=== PATIENT | male | born 1995 | race Caucasian/White ===

== ENCOUNTER 2017-03-24 23:24 | Emergency (ER) | payer OTHER ==
[2017-03-24 23:29] VITALS: BP 119/64; PULSE 69; TEMP 97.8; BMI 38.0
[2017-03-25] MEDS ORDERED: CEPHALEXIN MONOHYDRATE 500 MG CAPSULE (UD) PO ONE (02:20)
--- NOTE | 2017-03-25 02:21 | PDOC ---
History of Present Illness - General History Source: Patient Exam Limitations: No Limitations - History of Present Illness Initial Comments: 03/25/17 05:05 The patient is a 22 year old male with no significant past medical history who presents to the ED for pain and abrasion of the left wrist s/p mechanical fall one day ago. Patient reports he was home walking around last night, when he tripped, fell forward and sustained a abrasion/laceration to his left wrist. States he cleaned up the area and covered the wound with a bandage. However, after taking a shower today, he removed the bandage and noted some discharge coming from the area. Denies head trauma or LOC. Denies any radiation of pain. no associated numbness/tingling/weakness. The patient denies fever, chills, cough, SOB, chest pain, and palpitations. The patient denies abdominal pain, nausea, vomiting, and diarrhea. Allergies: NKDA Social History: No alcohol, tobacco, or drug use reported. Past Surgical History: None reported PCP not affiliated <Franny Patel - Last Filed: 03/25/17 05:05> <Jcarlos Ardon - Last Filed: 03/27/17 07:39> - General Chief Complaint: Injury Stated Complaint: LACERATION Time Seen by Provider: 03/25/17 01:39 Past History <Franny Patel - Last Filed: 03/25/17 05:05> - Past Medical History Other medical history: denies - Immunization History Immunization Up to Date: Yes - Psycho/Social/Smoking Cessation Hx Anxiety: No Suicidal Ideation: No Smoking History: Never smoked Have you smoked in the past 12 months: No Number of Cigarettes Smoked Daily: 0 Hx Alcohol Use: No Drug/Substance Use Hx: No Substance Use Type: None <Jcarlos Ardon - Last Filed: 03/27/17 07:39> - Past Medical History Allergies/Adverse Reactions: Allergies Allergy/AdvReac Type Severity Reaction Status Date / Time No Known Allergies Allergy Verified 03/24/17 23:29 Home Medications: Ambulatory Orders Cephalexin [Keflex] 500 mg PO QID #20 capsule 03/25/17 Review of Systems - Review of Systems Able to Perform ROS?: Yes Comments:: 03/25/17 05:05 Constitutional - Pt denies Fever, Chills, weakness, HEENT: denies vision changes, sore throat Musculskelatal - +pain and abrasion of the left wrist denies back pain, joint swelling skin - denies rash neurological: denies headache, numbness, focal weakness, tingling, ataxia, weakness <Franny Patel - Last Filed: 03/25/17 05:05> *Physical Exam - Vital Signs Last Vital Signs Temp Pulse Resp BP Pulse Ox 97.8 F 69 18 119/64 99 03/24/17 23:26 03/24/17 23:26 03/24/17 23:26 03/24/17 23:26 03/24/17 23:26 - Physical Exam Comments: 03/25/17 05:05 GENERAL: The patient is awake, alert, and fully oriented, Nontoxic - in no acute distress. HEAD: Normocephalic, atraumatic. EYES: extraocular movements intact, sclera anicteric, conjunctiva clear. ENT: Normal voice, Moist mucous membranes. NECK: Normal range of motion, supple without lymphadenopathy, JVD, or masses. EXTREMITIES: 5cm skin superficial abrasion/skin abrasion at the volar aspect of the left wrist. Normal range of motion, no edema. Mild surrounding erythema, or no induration/warmth or localized tenderness. NEUROLOGICAL: No facial asymmetry, Normal speech, normal gait. Sensation intact. SKIN: Warm, Dry, normal turgor, no rashes noted. <AmandaKandisFranny - Last Filed: 03/25/17 05:05> - Vital Signs Last Vital Signs Temp Pulse Resp BP Pulse Ox 97.8 F 69 18 119/64 99 03/24/17 23:26 03/24/17 23:26 03/24/17 23:26 03/24/17 23:26 03/24/17 23:26 <Jcarlos Ardon - Last Filed: 03/27/17 07:39> ED Treatment Course - Medications Given in the ED: ED Medications Discontinued Medications Generic Name Dose Route Start Last Admin Trade Name Freq PRN Reason Stop Dose Admin Bacitracin 0.9 gm 03/25/17 02:59 03/25/17 02:59 Bacitracin - TP 03/25/17 03:00 0.9 gm ONCE ONE Administration Cephalexin HCl 500 mg 03/25/17 02:20 03/25/17 02:59 Keflex - PO 03/25/17 02:21 500 mg ONCE ONE Administration <Franny Patel - Last Filed: 03/25/17 05:05> Medical Decision Making - Medical Decision Making 03/25/17 02:12 22y M presenting with abrasion/superfical laceration to volar R wrist, non gaping, no discharge/bleeding currently, mildly erythemadous but not warm nor tender to touch. will give abx as pt noted some discharge earlier n/v intact injury >24 hrs, suture reapair not indicated supportive mangement and bacitracin infectious returprecuations were discussed I discussed the physical exam findings, ancillary test results and final diagnoses with the patient. I answered all of the patient's questions. The patient was satisfied with the care received and felt comfortable with the discharge plan and treatment plan. The patient will call their primary care physician within 24 hours to arrange follow-up and will return to the Emergency Department with any new, persistent or worsening symptoms. <Jcarlos Ardon - Last Filed: 03/27/17 07:39> *DC/Admit/Observation/Transfer - Attestations Scribe Attestion: 03/25/17 05:05 Documentation prepared by Franny Patel, acting as medical illustrator for Jcarlos Ardon MD, /DO. <Franny Patel - Last Filed: 03/25/17 05:05> - Discharge Dispostion Admit: No <Jcarlos Ardon - Last Filed: 03/27/17 07:39> Diagnosis at time of Disposition: Abrasion - Discharge Dispostion Disposition: HOME Condition at time of disposition: Stable - Prescriptions Prescriptions: Cephalexin [Keflex] 500 mg PO QID #20 capsule - Referrals Referrals: [facility] [Provider Group] - Patient Instructions Printed Discharge Instructions: DI for Abrasion Additional Instructions: Return to the emergency department immediately with ANY new, persistent or worsening symptoms. Clean your wound gently with soap and water and apply bacitracin twice daily. If there is any surrounding redness, swelling, pain, purulent discharge or other concerns return to the ER for reevaluation. You MUST call and follow up with your doctor tomorrow for further evaluation of your symptoms. Results were discussed with you. Please make sure your doctor reviews the results of your emergency evaluation.
[2017-03-25] MEDS ORDERED: CEPHALEXIN MONOHYDRATE 250 MG CAPSULE (FP) ONE (02:52)
[2017-03-25] MEDS ORDERED: BACITRACIN 0.9 GM PACKET ONE (02:55)
[2017-03-25] MEDS ORDERED: BACITRACIN 0.9 GM PACKET TP ONE (02:59)
== END 2017-03-25 03:00 | disposition home or self-care (01) ==
LOC: JER 23:24
DX: S60.812A Abrasion of left wrist, initial encounter (principal); W01.190A Fall on same level from slipping, tripping and stumbling with subsequent striking against furniture, initial encounter; Y93.89 Activity, other specified; Y92.89 Other specified places as the place of occurrence of the external cause
CPT/HCPCS: 99281-25

== ENCOUNTER 2017-11-22 11:03 | Emergency (ER) | payer OTHER ==
[2017-11-22 11:09] VITALS: BP 128/75; PULSE 62; TEMP 98.3; BMI 32.3
[2017-11-22] MEDS ORDERED: diazePAM 5 MG TABLET PO ONE (11:51)
[2017-11-22] MEDS ORDERED: KETOROLAC TROMETHAMINE 60 MG/2 ML VIAL IM ONE (11:51)
[2017-11-22] MEDS ORDERED: KETOROLAC TROMETHAMINE 60 MG/2 ML VIAL ONE (11:52)
[2017-11-22] MEDS ORDERED: diazePAM 5 MG TABLET ONE (11:53)
--- NOTE | 2017-11-22 13:11 | PDOC ---
History of Present Illness - General Chief Complaint: Back Pain Stated Complaint: BACK PAIN Time Seen by Provider: 11/22/17 11:44 History Source: Patient Exam Limitations: No Limitations - History of Present Illness Initial Comments: 11/22/17 13:08 CHIEF COMPLAINT: Mid back pain. HISTORY OF PRESENT ILLNESS: Patient is a 22-year-old male, presents with upper back pain and spasm. Reports on Friday he started a vigorous exercise program doing a lot of pushups then yesterday had to remove leaves from a gutter and felt a spasm to mid back nonradiating. Feels better when he takes a deep breath. Denies fall. Denies chest pain or shortness of breath. REVIEW OF SYSTEMS: GENERAL: Afebrile, denies any weakness RESPIRATORY: No cough, wheezing, or hemoptysis. CARDIAC: No chest pain or shortness of breath MUSCULOSKELETAL: Pain to generalized back no point tenderness. Pain worse on left and right SKIN : No erythema, no bruising, no deformity. GI/: Denies any abdominal pain, no urinary difficulty, incontinence or urinary retention. RECTAL: Denies any difficulty this A.m. NEUROLOGICAL: Denies any numbness or tingling. No neurosensory deficits. PHYSICAL EXAM: GENERAL: The patient is awake, alert, and fully oriented, in no acute distress. RESPIRATORY: Lungs clear bilaterally, no rhonchi wheezes or crackles CARDIAC: S1-S2 audible, no murmur rub or gallop MUSCULOSKELETAL: Pain to generalized lower back, nonradiating, no tingling or sensory deficit. Less than 2 second cap refill, +4 popliteal and pedal pulses. GI/: Abdomen soft, nontender, nondistended. No rebound tenderness. No masses palpable. MUSCULOSKELETAL: No spinal point tenderness. No spasm to left lateral back . Normal reflexive and no deficits to sensation or strength. SKIN: Warm, Dry, normal turgor, no erythema, no edema no bruising. Past History - Past Medical History Allergies/Adverse Reactions: Allergies Allergy/AdvReac Type Severity Reaction Status Date / Time No Known Allergies Allergy Verified 11/22/17 11:09 Home Medications: Ambulatory Orders Cyclobenzaprine HCl [Flexeril 10 mg] 10 mg PO BID PRN #20 tablet 11/22/17 Naproxen [Naprosyn] 500 mg PO BID #20 tablet 11/22/17 COPD: No Other medical history: DENIES MEDICAL HX - Immunization History Immunization Up to Date: Yes - Suicide/Smoking/Psychosocial Hx Smoking History: Never smoked Have you smoked in the past 12 months: No Number of Cigarettes Smoked Daily: 0 Hx Alcohol Use: No Drug/Substance Use Hx: No Substance Use Type: None *Physical Exam - Vital Signs Last Vital Signs Temp Pulse Resp BP Pulse Ox 98.3 F 62 18 128/75 97 11/22/17 11:06 11/22/17 11:06 11/22/17 11:06 11/22/17 11:06 11/22/17 11:06 ED Treatment Course - Medications Given in the ED: ED Medications Discontinued Medications Generic Name Dose Route Start Last Admin Trade Name Freq PRN Reason Stop Dose Admin Diazepam 5 mg 11/22/17 11:51 11/22/17 11:56 Valium - PO 11/22/17 11:52 5 mg ONCE ONE Administration Ketorolac Tromethamine 60 mg 11/22/17 11:51 11/22/17 11:56 Toradol Injection - IM 11/22/17 11:52 60 mg ONCE ONE Administration Medical Decision Making - Medical Decision Making 11/22/17 13:10 A/P: Patient with left lateral upper back pain, spasm after working out strenuously. Lungs are clear. Patient reports pain is better after taking a deep breath. Has not attempted to take any medication denies any chest pain or shortness of breath. Denies any direct injury. Toradol 60 mg and Valium 5 mg by mouth given times one, will reevaluate 11/22/17 16:07 This reports relief of pain will DC on Naprosyn and Flexeril, no heavy lifting greater than 10 pounds stop working out aggressively until pain is resolved. If any increased pain, chest pain or shortness of breath return to ER *DC/Admit/Observation/Transfer Diagnosis at time of Disposition: Thoracic back pain Qualifiers: Chronicity: acute Back pain laterality: left Qualified Code(s): M54.6 - Pain in thoracic spine - Discharge Dispostion Disposition: HOME Condition at time of disposition: Stable Admit: No - Prescriptions Prescriptions: Cyclobenzaprine HCl [Flexeril 10 mg] 10 mg PO BID PRN #20 tablet PRN Reason: Pain Naproxen [Naprosyn] 500 mg PO BID #20 tablet - Referrals Referrals: Taylor Holley MD [Primary Care Provider] - - Patient Instructions Additional Instructions: 1. Please return to the emergency department with any numbness, tingling, weakness, numbness or tingling to groin or legs, or loss of bowel or bladder function. 2. Use pain medication as ordered. 3. Please is to followup in the office of for evaluation within a week if no improvement. 4. Heat to left upper back 5. Refrain from lifting anything above 10 pounds, until pain resolved. - Post Discharge Activity Forms/Work/School Notes: Back to Work
== END 2017-11-22 13:19 | disposition home or self-care (01) ==
LOC: JERFT 11:03
PROC: 3E0233Z Introduction of Anti-inflammatory into Muscle, Percutaneous Approach (ICD-10-PCS; principal; 2017-11-22)
DX: M54.6 Pain in thoracic spine (principal)
CPT/HCPCS: 99281-25

== ENCOUNTER 2017-12-24 01:12 | Emergency (ER) | payer OTHER ==
[2017-12-24 02:54] VITALS: BP 115/84; PULSE 94; TEMP 97.5; BMI 34.3
[2017-12-24] MEDS ORDERED: FAMOTIDINE 20 MG/50 ML IVPB 20 MG in PREMIX 50 IVPB ONE (03:17)
[2017-12-24] MEDS ORDERED: SODIUM CHLORIDE 1,000 ML IV STA (03:17)
[2017-12-24] MEDS ORDERED: ONDANSETRON 4 MG/2 ML VIAL IVPUSH STA (03:17)
--- NOTE | 2017-12-24 03:17 | PDOC ---
History of Present Illness - General History Source: Patient, Old Records Exam Limitations: No Limitations - History of Present Illness Initial Comments: 12/24/17 04:29 Patient is a 22 year old male with no significant past medical history who presents to the ED with complaints of food poisoning that began earlier today. Patient reports that he must have food poisoning because he began to develop nausea shortly after eating yesterday but has been unable to vomit for the past 24 hours. He reports experiencing diffuse abdominal pain as well as constipation since yesterday afternoon. Patient states he has been able to ingest liquids and urinate normally, but still currently feels dehydrated. Denies chest pain, Sob, Denies contact with sick individuals, out of state travelling. Denies dysuria, hematuria. Denies any other symptoms. Allergies: None Social history: No smoking. No alcohol. No illicit drugs. Surgical history: None PMD: Dr. Jerome Hinton <Omar Dubose - Last Filed: 12/24/17 04:29> - General History Source: Patient <Adrián Orlando - Last Filed: 12/24/17 06:17> - General Chief Complaint: Urinary Problem Stated Complaint: ABD PAIN Time Seen by Provider: 12/24/17 03:12 Past History <Omar Dubose - Last Filed: 12/24/17 04:29> - Past Medical History COPD: No - Immunization History Immunization Up to Date: Yes - Suicide/Smoking/Psychosocial Hx Smoking History: Never smoked Have you smoked in the past 12 months: No Number of Cigarettes Smoked Daily: 0 Information on smoking cessation initiated: No Hx Alcohol Use: No Drug/Substance Use Hx: No Substance Use Type: None <Adrián Orlando - Last Filed: 12/24/17 06:17> - Past Medical History Allergies/Adverse Reactions: Allergies Allergy/AdvReac Type Severity Reaction Status Date / Time No Known Allergies Allergy Verified 12/24/17 02:51 Home Medications: Ambulatory Orders Cyclobenzaprine HCl [Flexeril 10 mg] 10 mg PO BID PRN #20 tablet 11/22/17 Naproxen [Naprosyn] 500 mg PO BID #20 tablet 11/22/17 Ondansetron [Zofran *Odt*] 4 mg SL TID #30 od.tablet 12/24/17 Review of Systems - Review of Systems Able to Perform ROS?: Yes Comments:: 12/24/17 04:29 CONSTITUTIONAL: Absent: fever, no chills, no fatigue EYES: Absent: visual changes ENT: Absent: ear pain, no sore throat CARDIOVASCULAR: Absent: chest pain, no palpitations RESPIRATORY: Absent: cough, no SOB GI: +Nausea. +Abdominal pain. +constipation. Absent: abdominal pain, no nausea, no vomiting, no constipation, no diarrhea GENITOURINARY: Absent: dysuria, no frequency, no hematuria MUSCULOSKELETAL: Absent: back pain, no arthralgia, no myalgia SKIN: Absent: rash <Omar Dubose - Last Filed: 12/24/17 04:29> *Physical Exam - Vital Signs Last Vital Signs Temp Pulse Resp BP Pulse Ox 97.5 F L 94 H 14 115/84 98 12/24/17 02:51 12/24/17 02:51 12/24/17 02:51 12/24/17 02:51 12/24/17 02:51 - Physical Exam Comments: 12/24/17 04:29 GENERAL: +Appears mildly distressed. Well-appearing, well-nourished. No apparent distress. HEENT: Normocephalic, atraumatic. PERRL, EOM intact. CARDIOVASCULAR: Normal S1, S2. Regular rate and rhythm. PULMONARY: Clear to auscultation bilaterally. ABDOMEN: Soft, non-distended, non-tender. EXTREMITIES: Normal ROM in all four extremities. No gross deformities. SKIN: Warm, dry. No rash NEUROLOGICAL: No focal neurological deficits. <Omar Dubose - Last Filed: 12/24/17 04:29> - Vital Signs Last Vital Signs Temp Pulse Resp BP Pulse Ox 97.5 F L 94 H 14 115/84 98 12/24/17 02:51 12/24/17 02:51 12/24/17 02:51 12/24/17 02:51 12/24/17 02:51 <Adrián Orlando - Last Filed: 12/24/17 06:17> ED Treatment Course - LABORATORY CBC & Chemistry Diagram: 12/24/17 03:45 12/24/17 03:45 - ADDITIONAL ORDERS Additional order review: 12/24/17 03:45 RBC 5.08 MCV 87.1 MCHC 35.3 RDW 12.7 MPV 7.8 Neutrophils % 74.2 Lymphocytes % 14.0 Monocytes % 8.5 Eosinophils % 2.7 Basophils % 0.6 - Medications Given in the ED: ED Medications Discontinued Medications Generic Name Dose Route Start Last Admin Trade Name Mayank PRN Reason Stop Dose Admin Sodium Chloride 1,000 mls @ 1,000 mls/hr 12/24/17 03:17 12/24/17 03:48 Normal Saline - IV 12/24/17 04:16 1,000 mls/hr ASDIR STA Administration Famotidine/Sodium Chloride 20 50 mls @ 100 mls/hr 12/24/17 03:17 12/24/17 03: 48 mg/ Miscellaneous IVPB 12/24/17 03:46 100 mls/hr ONCE ONE Administration Ondansetron HCl 4 mg 12/24/17 03:17 12/24/17 03:48 Zofran Injection IVPUSH 12/24/17 03:18 4 mg ONCE STA Administration <Omar Dubose - Last Filed: 12/24/17 04:29> - LABORATORY CBC & Chemistry Diagram: 12/24/17 03:45 12/24/17 03:45 <Adrián Orlando - Last Filed: 12/24/17 06:17> Medical Decision Making - Medical Decision Making 12/24/17 06:16 Dr. Orlando: The scribe's documentation has been prepared under my direction and personally reviewed by me in its entirery. I confirm that the note above accurately reflects all work, treatment, procedures, and medical decision making performed by me. <Adrián Orlando - Last Filed: 12/24/17 06:17> *DC/Admit/Observation/Transfer - Attestations Scribe Attestion: 12/24/17 04:30 Documentation prepared by Omar Dubose, acting as medical safety director for Adrián Orlando MD/DO. <Omar Dubose - Last Filed: 12/24/17 04:29> - Discharge Dispostion Admit: No <Adrián Orlando - Last Filed: 12/24/17 06:17> Diagnosis at time of Disposition: Vomiting and diarrhea Abdominal pain Qualifiers: Abdominal location: generalized Qualified Code(s): R10.84 - Generalized abdominal pain - Discharge Dispostion Disposition: HOME Condition at time of disposition: Stable - Referrals Referrals: Taylor Holley MD [Primary Care Provider] - - Patient Instructions Printed Discharge Instructions: DI for Abdominal Pain-Adult - Post Discharge Activity
[2017-12-24] MEDS ORDERED: ONDANSETRON 4 MG/2 ML VIAL ONE (03:40)
[2017-12-24] MEDS ORDERED: FAMOTIDINE 20 MG/50 ML IVPB 20 MG/50 ML MG IVPB ONE (03:41)
[2017-12-24 03:54] LABS: BASO % 0.6 % (0-2.0); EOS % 2.7 % (0-4.5); HEMATOCRIT 44.2 % (35.4-49); HEMOGLOBIN 15.6 GM/dL (11.7-16.9); MCH 30.7 pg (25.7-33.7); MCHC 35.3 g/dl (32.0-35.9); MEAN CELL VOLUME 87.1 fl (80-96); MEAN PLT VOLUME 7.8 fl (7.5-11.1); MONO % 8.5 % (3.8-10.2); NEUT % 74.2 % (42.8-82.8); PLATELET COUNT 236 K/MM3 (134-434); RBC 5.08 M/mm3 (4.00-5.60); RDW 12.7 % (11.9-15.9); WHITE BLOOD COUNT 9.8 K/mm3 (4.0-10.0)
[2017-12-24 04:27] LABS: ALBUMIN 3.7 g/dl (3.4-5.0); ANION GAP 6 (8-16); BLOOD UREA NITROGEN 13 mg/dL (7-18); CALCIUM 8.5 mg/dL (8.5-10.1); CHLORIDE 104 mmol/L (98-107); CO2 28 mmol/L (21-32); GLUCOSE,RANDOM 79 mg/dL (74-106); POTASSIUM 3.6 mmol/L (3.5-5.1); SODIUM 138 mmol/L (136-145)
[2017-12-24 04:31] LABS: ALK PHOS 84 U/L (45-117); BILIRUBIN,TOTAL 1.2 mg/dL (0.2-1.0); CREATININE 0.7 mg/dL (0.7-1.3); SGOT/AST 41 U/L (15-37); SGPT/ALT 79 U/L (12-78); TOT PROT 7.2 g/dl (6.4-8.2)
== END 2017-12-24 06:28 | disposition home or self-care (01) ==
LOC: JER 01:12
PROC: 3E033GC Introduction of Other Therapeutic Substance into Peripheral Vein, Percutaneous Approach (ICD-10-PCS; principal; 2017-12-24)
PROC: 3E0337Z Introduction of Electrolytic and Water Balance Substance into Peripheral Vein, Percutaneous Approach (ICD-10-PCS; 2017-12-24)
DX: R11.10 Vomiting, unspecified (principal); R19.7 Diarrhea, unspecified; R10.84 Generalized abdominal pain
CPT/HCPCS: 36415; 80053; 85025; 96361; 96365; 96375; 99282-25; J7030

== ENCOUNTER 2018-01-23 23:44 | Inpatient (IN) | payer OTHER ==
[2018-01-24] MEDS ORDERED: morphine CARPU-JECT 2 MG/1 ML DISP.SYRIN IVPUSH ONE ×3 (00:53→03:58)
[2018-01-24] MEDS ORDERED: SODIUM CHLORIDE 1,000 ML IV STA (00:53)
[2018-01-24] MEDS ORDERED: ONDANSETRON 4 MG/2 ML VIAL IVPUSH ONE (00:53)
--- NOTE | 2018-01-24 00:53 | PDOC ---
History of Present Illness - General Chief Complaint: Pain Stated Complaint: PAIN Time Seen by Provider: 01/24/18 00:13 History Source: Patient Exam Limitations: No Limitations - History of Present Illness Travel History: No Initial Comments: 01/24/18 00:54 Best Contact: PCP:None Pmhx:N/A Pshx:N/A Allergies:N/A 23-year-old male presents to the ER with his mother complaining of RLQ>RUQ abdominal pain since approximately 09 100 this morning when he awoke. Pain is described as 10/10 sharp nonradiating constant discomfort . The pain is exacerbated on movement and touch and there are no alleviating factors. Pain is associated with nausea and vomiting that nonbilious and nonbloody. Patient denies headache, dizziness, lightheadedness, facial pains, sore throat, back pains, chest pain, neck pain, shortness of breath, flank pains, urinary symptoms : Frequency/urgency/hesitancy, hematuria. Patient last had any by mouth intake was 24 hours ago 01/24/18 05:28 Past History - Past Medical History Allergies/Adverse Reactions: Allergies Allergy/AdvReac Type Severity Reaction Status Date / Time No Known Allergies Allergy Verified 01/24/18 00:41 Home Medications: Ambulatory Orders Cyclobenzaprine HCl [Flexeril 10 mg] 10 mg PO BID PRN #20 tablet 11/22/17 Naproxen [Naprosyn] 500 mg PO BID #20 tablet 11/22/17 Ondansetron [Zofran *Odt*] 4 mg SL TID #30 od.tablet 12/24/17 COPD: No - Immunization History Immunization Up to Date: Yes - Suicide/Smoking/Psychosocial Hx Smoking History: Never smoked Have you smoked in the past 12 months: No Number of Cigarettes Smoked Daily: 0 Information on smoking cessation initiated: No Hx Alcohol Use: No Drug/Substance Use Hx: No Substance Use Type: None Review of Systems - Review of Systems Able to Perform ROS?: Yes Comments:: 01/24/18 00:55 CONSTITUTIONAL: Absent: fever, chills, diaphoresis, generalized weakness, malaise, loss of appetite HEENT: Absent: rhinorrhea, nasal congestion, throat pain, throat swelling, difficulty swallowing, mouth swelling, ear pain, eye pain, visual Changes CARDIOVASCULAR: Absent: chest pain, loss of consciousness, palpitations, irregular heart rate, peripheral edema RESPIRATORY: Absent: cough, shortness of breath, dyspnea with exertion, orthopnea, wheezing, stridor, hemoptysis GASTROINTESTINAL: +RLQ/RUQ pain, Nausea/vomiting Absent: abdominal distension, diarrhea, constipation, melena, hematochezia GENITOURINARY: Absent: dysuria, frequency, urgency, hesitancy, hematuria, flank pain, genital pain MUSCULOSKELETAL: Absent: myalgia, arthralgia, joint swelling SKIN: Absent: rash, itching, pallor HEMATOLOGIC/IMMUNOLOGIC: Absent: easy bleeding, easy bruising, lymphadenopathy, frequent infections ENDOCRINE: Absent: unexplained weight gain, unexplained weight loss, heat intolerance, cold intolerance NEUROLOGIC: Absent: headache, focal weakness or paresthesias, dizziness, unsteady gait, seizure, mental status changes, bladder or bowel incontinence PSYCHIATRIC: Absent: anxiety, depression, suicidal or homicidal ideation, hallucinations. Is the patient limited Latvian proficient: No *Physical Exam - Vital Signs Last Vital Signs Temp Pulse Resp BP Pulse Ox 98.1 F 74 20 136/83 99 01/24/18 00:41 01/24/18 00:41 01/24/18 00:41 01/24/18 00:41 01/24/18 00:41 - Physical Exam Comments: 01/24/18 00:56 GENERAL: Well developed, well nourished. Awake and alert. No acute distress. HEENT: Normocephalic, atraumatic. PERRLA, EOMI. No conjunctival pallor. Sclera are non- icteric. Moist mucous membranes. Oropharynx is clear. NECK: Supple. Full ROM. No JVD. Carotid pulses 2+ and symmetric, without bruits. No thyromegaly. No lymphadenopathy. CARDIOVASCULAR: Regular rate and rhythm. No murmurs, rubs, or gallops. Distal pulses are 2+ and symmetric. PULMONARY: No evidence of respiratory distress. Lungs clear to auscultation bilaterally. No wheezing, rales or rhonchi. ABDOMINAL: +RLQ/RUQ pain on palp Soft. Non-distended. No rebound or guarding. No organomegaly. Normoactive bowel sounds. MUSCULOSKELETAL Normal range of motion at all joints. No bony deformities or tenderness. No CVA tenderness. EXTREMITIES: No cyanosis. No clubbing. No edema. No calf tenderness. SKIN: Warm and dry. Normal capillary refill. No rashes. No jaundice. NEUROLOGICAL: Alert, awake, appropriate. Cranial nerves 2-12 intact. No deficits to light touch and temperature in face, upper extremities and lower extremities. No motor deficits in the in face, upper extremities and lower extremities. Normoreflexic in the upper and lower extremities. Normal speech. Toes are down- going bilaterally. Gait is normal without ataxia. PSYCHIATRIC: Cooperative. Good eye contact. Appropriate mood and affect. ED Treatment Course - LABORATORY CBC & Chemistry Diagram: 01/24/18 00:57 01/24/18 00:57 - RADIOLOGY Radiograph Interpretation: 01/24/18 00:56 CT abd./pelvis po and iv contrast; Abdominal ultrasound/limited: Liver appears echogenic suggesting fatty infiltration. Gallbladder appears normal. Common bile duct is 5 mm. Right kidney appears normal. Pancreas appears normal. Aorta is normal. Impression fatty liver. CT abdomen and pelvis with by mouth and IV contrast: Acute appendicitis The appendix extends distally from the cecum in the right lateral pelvis. The appendix is distended and thickened measured 1 cm transversely. There is haziness in the surrounding fat Progress Note - Progress Note Progress Note: 0532hrs: Microblogged Hospitalist for admission (pt doees NOT have any physician here 0621hrs: Called Dr. Carr/surgery heating and ventilation engineer/ left a message 0700hrs: Called Dr. Carr 0704hrs: Signed out to Dr. Crooks *DC/Admit/Observation/Transfer Diagnosis at time of Disposition: Acute appendicitis Qualifiers: Acute appendicitis type: with localized peritonitis Qualified Code(s): K35.3 - Acute appendicitis with localized peritonitis - Discharge Dispostion Condition at time of disposition: Stable Admit: Yes - Referrals - Patient Instructions - Post Discharge Activity
[2018-01-24] MEDS ORDERED: MORPHINE SULFATE 10 MG/1 ML *VIAL ONE ×2 (01:12→03:51)
[2018-01-24] MEDS ORDERED: ONDANSETRON 4 MG/2 ML VIAL ONE (01:12)
[2018-01-24 01:19] LABS: BASO % 0.4 % (0-2.0); HEMOGLOBIN 15.2 GM/dL (11.7-16.9); LYMPH % 9.6 % (8-40); MCH 30.3 pg (25.7-33.7); MCHC 34.6 g/dl (32.0-35.9); MEAN CELL VOLUME 87.6 fl (80-96); MEAN PLT VOLUME 8.2 fl (7.5-11.1); MONO % 7.1 % (3.8-10.2); NEUT % 81.9 % (42.8-82.8); PLATELET COUNT 245 K/MM3 (134-434); RBC 5.02 M/mm3 (4.00-5.60); RDW 12.4 % (11.9-15.9); WHITE BLOOD COUNT 16.2 K/mm3 (4.0-10.0)
[2018-01-24 01:45] LABS: ALK PHOS 78 U/L (45-117); ANION GAP 7 (8-16); BILIRUBIN,TOTAL 0.8 mg/dL (0.2-1.0); BLOOD UREA NITROGEN 14 mg/dL (7-18); CALCIUM 8.8 mg/dL (8.5-10.1); CHLORIDE 104 mmol/L (98-107); CO2 28 mmol/L (21-32); CREATININE 0.8 mg/dL (0.7-1.3); GLUCOSE,RANDOM 100 mg/dL (74-106); POTASSIUM 3.8 mmol/L (3.5-5.1); SGOT/AST 41 U/L (15-37); SGPT/ALT 86 U/L (12-78); SODIUM 139 mmol/L (136-145); TOT PROT 7.6 g/dl (6.4-8.2)
[2018-01-24 01:47] LABS: LIPASE 278 U/L (73-393)
[2018-01-24] MEDS ORDERED: PIPERACILLIN/TAZOB 3.375 GM 3.375 GM in DEXTROSE 5%-WATER - 50 ML IVPB ONE (01:51)
[2018-01-24] MEDS ORDERED: PIPERACILLIN/TAZOB 3.375 GM 3.375 GM/50 ML BAG IVPB ONE (05:06)
[2018-01-24] MEDS ORDERED: CEFTRIAXONE 1,000 MG in DEXTROSE 5%-WATER - 50 ML IVPB ONE (05:22)
[2018-01-24 05:31] LABS: INR 1.14 (0.82-1.09); PROTHROMBIN TIME (PATIENT) 12.9 SEC (9.7-13.0)
[2018-01-24 05:34] LABS: ACTIVATED PTT 34.3 SECONDS (26.9-34.4)
[2018-01-24] MEDS ORDERED: CEFTRIAXONE 1 GM/50 ML BAG ONE (05:44)
[2018-01-24] MEDS ORDERED: morphine CARPU-JECT 2 MG/1 ML DISP.SYRIN IVPUSH PRN ×2 (07:45→14:19)
[2018-01-24] MEDS ORDERED: SODIUM CHLORIDE 1,000 ML IV SCH ×2 (07:45→14:19)
--- NOTE | 2018-01-24 07:48 | HP ---
CHIEF COMPLAINT: " Right lower quadrant abdominal pain" PCP: Doesn't have one. HISTORY OF PRESENT ILLNESS: Patient is a 23 year old male with no past medical history presented to the ED with the chief complaint of RLQ abodminal pain x 1 day. As per the patient, he was apparently well until yesterday morning, when he suddenly developed pain around the umbilical area. During the day, pain started getting worse, migrated in the right lower quadrant, 10/10 in intensity, non radiating, associated with nausea and one episode of non bilious, non bloody vomiting in the ED. Abdominal pain was also associated with chills but no fever. Pain got worse prompting him to come to the ED for further evaluation and treatment. Denies chest pain, sob, cough, palpitation, headache, loc, tingling, numbness. Bowel/Bladder habit normal. Last bowel movement 1 day ago. Sleep/Appetite normal prior to the illness. Last meal > 24 hrs ago. ER course was notable for: (1) Afebrile, hemodynamically stable, Leukocytosis 16.2; Elevated liver enzymes 41/86/78 (2) CT abdomen/pelvis (3) IV Ceftriaxone, IV Flagyl, IV Zosyn, IV NS 1L; Morphine 6mg total Recent Travel: None PAST MEDICAL HISTORY: None PAST SURGICAL HISTORY: None Social History: Smoking: Denies Alcohol: Occasional, last drink a week ago. Drugs: Denies Family History: Non contributory Allergies No Known Allergies Allergy (Verified 01/24/18 00:41) HOME MEDICATIONS: Home Medications Medication Instructions Recorded Cyclobenzaprine HCl [Flexeril 10 10 mg PO BID PRN #20 tablet 11/22/17 mg] Naproxen [Naprosyn] 500 mg PO BID #20 tablet 11/22/17 Ondansetron [Zofran *Odt*] 4 mg SL TID #30 od.tablet 12/24/17 REVIEW OF SYSTEMS CONSTITUTIONAL: Absent: fever, chills, diaphoresis, generalized weakness, malaise, loss of appetite, weight change HEENT: Absent: rhinorrhea, nasal congestion, throat pain, throat swelling, difficulty swallowing, mouth swelling, ear pain, eye pain, visual changes CARDIOVASCULAR: Absent: chest pain, syncope, palpitations, irregular heart rate, lightheadedness , peripheral edema RESPIRATORY: Absent: cough, shortness of breath, dyspnea with exertion, orthopnea, wheezing, stridor, hemoptysis GASTROINTESTINAL: Present: abdominal pain, abdominal distension, nausea, vomiting Absent: diarrhea, constipation, melena, hematochezia GENITOURINARY: Absent: dysuria, frequency, urgency, hesitancy, hematuria, flank pain, genital pain MUSCULOSKELETAL: Absent: myalgia, arthralgia, joint swelling, back pain, neck pain SKIN: Absent: rash, itching, pallor HEMATOLOGIC/IMMUNOLOGIC: Absent: easy bleeding, easy bruising, lymphadenopathy, frequent infections ENDOCRINE: Absent: unexplained weight gain, unexplained weight loss, heat intolerance, cold intolerance NEUROLOGIC: Absent: headache, focal weakness or paresthesias, dizziness, unsteady gait, seizure, mental status changes, bladder or bowel incontinence PSYCHIATRIC: Absent: anxiety, depression, suicidal or homicidal ideation, hallucinations. PHYSICAL EXAMINATION Vital Signs - 24 hr 01/24/18 01/24/18 00:41 06:54 Temperature 98.1 F 98.1 F Pulse Rate 74 Pulse Rate [ 79 Right Radial] Respiratory 20 12 Rate Blood Pressure 136/83 Blood Pressure 104/54 [Left Arm] O2 Sat by Pulse 99 96 Oximetry (%) GENERAL: Young male, in mild abdominal pain, Awake, alert, and fully oriented, in no acute distress. HEAD: Normal with no signs of trauma. EYES: EOM intact, no pallor or icterus. EARS, NOSE, THROAT: Ears normal. Moist mucous membranes. NECK: Supple. LUNGS: B/L Breath sounds equal, clear to auscultation bilaterally. No wheezes, and no crackles. No accessory muscle use. HEART: Regular rate and rhythm, normal S1 and S2 without murmur. ABDOMEN: Soft, tenderness in the right lower quadrant, rebound tenderness +, Rovsing sign negative, obturator sign +, not distended, normoactive bowel sounds. Deep palpation couldn't be done due to pain. MUSCULOSKELETAL: Normal range of motion at all joints. No bony deformities or tenderness. No CVA tenderness. UPPER EXTREMITIES: 2+ pulses, warm, well-perfused. No cyanosis. No clubbing. No peripheral edema. LOWER EXTREMITIES: 2+ pulses, warm, well-perfused. No calf tenderness. No peripheral edema. NEUROLOGICAL: No facial droop, power 5/5 in all extremities, Cranial nerves II- XII intact. Normal speech. Gait not observed. PSYCHIATRIC: Cooperative. Good eye contact. Appropriate mood and affect. SKIN: Warm, dry, normal turgor, no rashes or lesions noted, normal capillary refill. Laboratory Results - last 24 hr 01/24/18 01/24/18 01/24/18 00:57 00:57 04:25 WBC 16.2 H D RBC 5.02 Hgb 15.2 Hct 44.0 MCV 87.6 MCH 30.3 MCHC 34.6 RDW 12.4 Plt Count 245 MPV 8.2 Neutrophils % 81.9 Lymphocytes % 9.6 D Monocytes % 7.1 Eosinophils % 1.0 Basophils % 0.4 PT with INR 12.90 INR 1.14 PTT (Actin FS) 34.3 Sodium 139 Potassium 3.8 Chloride 104 Carbon Dioxide 28 Anion Gap 7 L BUN 14 Creatinine 0.8 Creat Clearance w eGFR > 60 Random Glucose 100 D Lactic Acid Calcium 8.8 Total Bilirubin 0.8 D AST 41 H ALT 86 H Alkaline Phosphatase 78 Total Protein 7.6 Albumin 4.0 Lipase 278 01/24/18 04:25 WBC RBC Hgb Hct MCV MCH MCHC RDW Plt Count MPV Neutrophils % Lymphocytes % Monocytes % Eosinophils % Basophils % PT with INR INR PTT (Actin FS) Sodium Potassium Chloride Carbon Dioxide Anion Gap BUN Creatinine Creat Clearance w eGFR Random Glucose Lactic Acid 1.8 Calcium Total Bilirubin AST ALT Alkaline Phosphatase Total Protein Albumin Lipase ASSESSMENT/PLAN: Patient is a 23 year old male with no past medical history presented to the ED with the chief complaint of RLQ abodminal pain x 1 day. # Sepsis secondary to Acute appendicitis c/o RLQ abdominal pain, with nausea, vomiting, chills Abdomen/Pelvis CT showed: Acute appendicitis Admitted in Med-Surg/Inpatient NPO IV NS @ 100 mls/hr IV Ceftriaxone 1 gm daily IV Metronidazole 500mg TID IV Morphine 2mg Q4H for Pain IV Zofran 4mg Q6H (once the EKG is done, will check the Qtc before ordering it) Type and screen INR done Called placed to Dr. Carr, he will see the patient this morning, surgery today after 10 AM. # FEN IV NS @ 100 mls/hr Electrolytes WNL NPO for surgery # Prophylaxis For DVT: On Heparin 5000 IU sq TID, hold it 4 hrs before the surgery For GI: Not indicated # Code Status: Full Code # Dispo: Admitted in Med-Surg/Inpatient. Duration of stay > 2 days. Illness, Investigation and Plan of care explained to the patient and his parents. They verbalized understanding. Case to be discussed with Dr. Celestin. Visit type - Emergency Visit Emergency Visit: Yes ED Registration Date: 01/24/18 Care time: The patient presented to the Emergency Department on the above date and was hospitalized for further evaluation of their emergent condition. - New Patient This patient is new to me today: Yes Date on this admission: 01/24/18 - Critical Care Critical Care patient: No Hospitalist Screening - Colonoscopy Questionnaire Colonoscopy Questionnaire: Colonoscopy Questionnaire - Patient: 50 - 75 years old and never had a screening colonoscopy: Unknown History of colon or rectal polyps, or CA: Unknown History of IBD, Crohn's disease or UC: Unknown History of abdominal radiation therapy as a child: Unknown - Relative: 1 with colon or rectal CA, or polyps at age 60 or younger: Unknown Colon or rectal CA diagnosed at age 45 or younger: Unknown Multiple relatives with colon or rectal CA: Unknown - Outcome: Screening Result: Negative Screen
[2018-01-24] MEDS ORDERED: HEPARIN NA (PORCINE) 5,000 UNITS/ML 1ML VIAL SQ SCH (10:00)
--- NOTE | 2018-01-24 11:18 | CONSULT ---
- Consultation REQUESTING PROVIDER: Emani [employer] W[employer] INSPECTOR CONSULT REQUEST: We have been asked to surgically evaluate this patient for appendicitis PCP:Sameer Celestin HISTORY OF PRESENT ILLNESS: SOFIA who is a 23 y/o male who presented w/24 hours of sharp periumbilical to RLQ abdominal pain associated w/nausea and no vomiting ; he never had this before; he denies any other /GI c/o. Pain worse with movement and less w/lying still; constant and unrelenting PMHx: none PSHx: none Home Medications Medication Instructions Recorded Cyclobenzaprine HCl [Flexeril 10 10 mg PO BID PRN #20 tablet 11/22/17 mg] Naproxen [Naprosyn] 500 mg PO BID #20 tablet 11/22/17 Ondansetron [Zofran *Odt*] 4 mg SL TID #30 od.tablet 12/24/17 Allergies Allergy/AdvReac Type Severity Reaction Status Date / Time No Known Allergies Allergy Verified 01/24/18 00:41 REVIEW OF SYSTEMS: CONSTITUTIONAL: Absent: fever, chills, diaphoresis, generalized weakness, malaise, loss of appetite, weight change CARDIOVASCULAR: Absent: chest pain, syncope, palpitations, irregular heart rate, lightheadedness , peripheral edema RESPIRATORY: Absent: cough, shortness of breath, dyspnea with exertion, wheezing, stridor, hemoptysis GASTROINTESTINAL: Absent: abdominal pain, abdominal distension, nausea, vomiting, diarrhea, constipation, melena, hematochezia GENITOURINARY: Absent: dysuria, frequency, urgency, hesitancy, hematuria, flank pain, genital pain MUSCULOSKELETAL: Absent: myalgia, arthralgia, joint swelling, back pain, neck pain SKIN: Absent: rash, itching, pallor HEMATOLOGIC/IMMUNOLOGIC: Absent: easy bleeding, easy bruising, lymphadenopathy NEUROLOGIC: Absent: headache, focal weakness, paresthesias, dizziness, unsteady gait, seizure, mental status changes, bladder or bowel incontinence PSYCHIATRIC: Absent: anxiety, depression, suicidal or homicidal ideation, hallucinations. PHYSICAL EXAM: GENERAL: Awake, alert, and fully oriented, in slight acute distress. HEAD: Normal with no signs of trauma. EYES: PERRL, sclera anicteric, conjunctiva clear. NECK: Normal ROM, supple without lymphadenopathy, JVD, or masses. LUNGS: Clear to auscultation HEART: S1 and S2 present; no ,urmur ABDOMEN: Soft,tender RLQ w/guarding and localized rebound, not distended, normoactive bowel sounds, no hernias; Rovsings; psoas and obturator signs are present. No organomegaly. MUSCULOSKELETAL: Normal ROM at all joints. No bony deformities or tenderness. No CVA tenderness. UPPER EXTREMITIES: 2+ pulses, warm, well-perfused. No cyanosis. Cap refill <2 seconds. No peripheral edema. LOWER EXTREMITIES: 2+ pulses, warm, well-perfused. No calf tenderness. No peripheral edema. NEUROLOGICAL: Normal speech, gait not observed. PSYCH: Cooperative. Good eye contact. Appropriate mood and affect. SKIN: Warm, dry, normal turgor, no rashes or lesions noted. Vital Signs Temperature 98.3 F 01/24/18 08:40 Pulse Rate 76 01/24/18 08:40 Respiratory Rate 20 01/24/18 08:40 Blood Pressure 114/53 01/24/18 08:40 O2 Sat by Pulse Oximetry (%) 96 01/24/18 06:54 Lab Results WBC 16.2 K/mm3 (4.0-10.0) H D 01/24/18 00:57 RBC 5.02 M/mm3 (4.00-5.60) 01/24/18 00:57 Hgb 15.2 GM/dL (11.7-16.9) 01/24/18 00:57 Hct 44.0 % (35.4-49) 01/24/18 00:57 MCV 87.6 fl (80-96) 01/24/18 00:57 MCHC 34.6 g/dl (32.0-35.9) 01/24/18 00:57 RDW 12.4 % (11.9-15.9) 01/24/18 00:57 Plt Count 245 K/MM3 (134-434) 01/24/18 00:57 Sodium 139 mmol/L (136-145) 01/24/18 00:57 Potassium 3.8 mmol/L (3.5-5.1) 01/24/18 00:57 Chloride 104 mmol/L (98-107) 01/24/18 00:57 Carbon Dioxide 28 mmol/L (21-32) 01/24/18 00:57 Anion Gap 7 (8-16) L 01/24/18 00:57 BUN 14 mg/dL (7-18) 01/24/18 00:57 Creatinine 0.8 mg/dL (0.7-1.3) 01/24/18 00:57 Random Glucose 100 mg/dL (74-106) D 01/24/18 00:57 Calcium 8.8 mg/dL (8.5-10.1) 01/24/18 00:57 INR 1.14 (0.82-1.09) 01/24/18 04:25 CT a/p c/w acute appendictis IMP: acute appendicitis PLAN: Lap appendectomy; possible open; r/b/t/a's d/w te patient and his parents in Polish and informed consebt obtained. Chuck Carr MD FACS Visit type - Case Type Case Type: ED Admission - Emergency Emergency Visit: Yes ED Registration Date: 01/24/18 Care time: The patient presented to the Emergency Department on the above date and was hospitalized for further evaluation of their emergent condition. - New patient This patient is new to me today: Yes Date on this admission: 01/24/18 - Critical Care Critical Care patient: No
[2018-01-24] MEDS ORDERED: PROPOFOL 20 ML ONE ×2 (11:45)
[2018-01-24] MEDS ORDERED: SUCCINYLCHOLINE CHLORIDE 200 MG/10 ML VIAL ONE (11:45)
[2018-01-24] MEDS ORDERED: fentaNYL CITRATE 250 MCG/5 ML VIAL ONE (11:45)
[2018-01-24] MEDS ORDERED: BUPIVACAINE HCL/PF 0.5% (5MG/ML) 10 ML VIAL ONE (11:49)
--- NOTE | 2018-01-24 11:51 | PN ---
Teaching Attending Note Name of Resident: Mckenzie Fishman ATTENDING PHYSICIAN STATEMENT I saw and evaluated the patient. I reviewed the resident's note and discussed the case with the resident. I agree with the resident's findings and plan as documented. SUBJECTIVE: CC: pain in abd HPI: 23 /o healthy man with no significant PMH who presented with abd pain x 1 day. yesterday am, he woke up with periambilical Abd pain which progressed to in intensity and moved to RLQ. pain has been getting worse so he presented to ER. in ER had one episode of non bloody non bilious emesis. now he is on floor . cont to have pain in RLQ. OBJECTIVE: NAD, MMM. no facial droop. EOMI CV: RRR Lungs: CTAB Ext: no edema Abd: soft, Nd, TTP in RLQ. + psoas. nl BS Neuro : EOMI, no facial droop. tongue at mid line strength 5/5 in upper and lower ext proximally and distally. reflexes 1+ knee jerk , 1+ biceps , and 2+ BR b/l . ASSESSMENT AND PLAN: 23 /o healthy man with no significant PMH who presented with abd pain x 1 day.He was found ot have acute appendicitis 1- Sepsis due to Acute appendicitis . - start IVF - give ceftriaxone and flagyl pending sx. if no perforation ,then can stop Abx - NPO - appreciate surgical help 2- Transaminitis : likely due to sepsis on back ground of fatty liver. - US reviwed. - follow LFTS dispo possible dc tomorrow
[2018-01-24] MEDS ORDERED: ROCURONIUM BROMIDE 50 MG/5 ML VIAL ONE (12:05)
[2018-01-24] MEDS ORDERED: DEXAMETHASONE SOD PHOSPHATE 4 MG/1 ML VIAL ONE (12:07)
[2018-01-24] MEDS ORDERED: BUPIVACAINE HCL/PF 0.5% (5MG/ML) 10 ML VIAL IJ ONE ×2 (12:33→13:53)
[2018-01-24 13:28] VITALS: BMI 32.8
[2018-01-24] MEDS ORDERED: NEOSTIGMINE METHYLSULFATE 0.5 MG/ML - 10 ML MDV ONE (13:53)
[2018-01-24] MEDS ORDERED: GLYCOPYRROLATE 0.2 MG/1 ML VIAL ONE ×2 (13:54→13:59)
--- NOTE | 2018-01-24 14:17 | OP ---
Operative Note - Note: Operative Date: 01/24/18 Pre-Operative Diagnosis: acute appendicitis Operation: lap appendectomy Findings: acute appendicitis Post-Operative Diagnosis: Same as Pre-op Surgeon: Chuck Carr Anesthesiologist/PHP DEVELOPER: Rony Post Anesthesia: General Specimens Removed: appendix Estimated Blood Loss (mls): 20
[2018-01-24] MEDS ORDERED: ONDANSETRON 4 MG/2 ML VIAL IVPUSH PRN (14:36)
[2018-01-24] MEDS ORDERED: LACTATED RINGERS SOLUTION 1,000 ML IV SCH (14:45)
[2018-01-25] MEDS ORDERED: morphine SULFATE 4 MG/ML VIAL IVPUSH PRN (00:21)
[2018-01-25] MEDS ORDERED: CEFTRIAXONE 1 GM in DEXTROSE 5%-WATER - 50 ML IVPB SCH ×2 (05:00→10:00)
[2018-01-25] MEDS ORDERED: IBUPROFEN 600 MG TABLET (FP) PO PRN (07:49)
[2018-01-25 08:25] LABS: HEMATOCRIT 38.6 % (35.4-49); HEMOGLOBIN 13.3 GM/dL (11.7-16.9); MCH 30.3 pg (25.7-33.7); MCHC 34.4 g/dl (32.0-35.9); MEAN PLT VOLUME 8.1 fl (7.5-11.1); PLATELET COUNT 208 K/MM3 (134-434); RBC 4.39 M/mm3 (4.00-5.60); RDW 12.3 % (11.9-15.9); WHITE BLOOD COUNT 10.7 K/mm3 (4.0-10.0)
[2018-01-25 08:48] LABS: ANION GAP 7 (8-16); BLOOD UREA NITROGEN 12 mg/dL (7-18); CALCIUM 7.8 mg/dL (8.5-10.1); CHLORIDE 108 mmol/L (98-107); CO2 26 mmol/L (21-32); CREATININE 0.6 mg/dL (0.7-1.3); GLUCOSE,RANDOM 86 mg/dL (74-106); POTASSIUM 3.7 mmol/L (3.5-5.1); SODIUM 141 mmol/L (136-145)
--- NOTE | 2018-01-25 09:05 | PN ---
Progress Note (short form) - Note Progress Note: Post op day#1.S/P Laproscopic appendectomy under Ga uneventful.Patient stable.No any anesthesia related problem.Patient Dc from the anesthesia care.
--- NOTE | 2018-01-25 10:28 | PN ---
Progress Note (short form) - Note Progress Note: Attending Surgeon POD #1 s/p lap appendectomy c/o some soreness; tolerated diet; has not ambulated; had BM VSS AF abdo-soft; port site dressings c/d/i; exam o/w negative WBC-wnl IMP: doing well PLAN: advance to regular diet; OOB walking; may be discharged to office f/u later today. Chuck Carr MD FACS
[2018-01-25 14:57] VITALS: BP 124/59; PULSE 74; TEMP 98.6
--- NOTE | 2018-01-25 16:09 | DS ---
Physical Examination Vital Signs: Vital Signs Temperature 98.6 F 01/25/18 14:56 Pulse Rate 74 01/25/18 14:56 Respiratory Rate 20 01/25/18 14:56 Blood Pressure 124/59 01/25/18 14:56 O2 Sat by Pulse Oximetry (%) 97 01/25/18 09:00 Findings/Remarks: no fever or chills. abd pain is better. passed gas but no BM. tolearated diet PE : NAD, MMM. no facial droop. EOMI CV: RRR Lungs: CTAB Ext: no edema Abd: soft, Nd, TTP in RLQ. Nl BS . small dressings on endoscopic wounds Labs: CBC, BMP 01/25/18 07:30 01/25/18 07:30 Discharge Summary Reason For Visit: ACUTE APPENDICITIS Current Active Problems Acute appendicitis (Acute) Hospital Course: d/c diagnoses : 1- Sepsis due to acute appendicitis 2- Transaminitis : du eto #1 and fatty liver Hospital course : 23 y/o healthy man with no significant PMH who presented with abd pain x 1 day.on admission he was found to have clinical signs and sx and radiological findings of acute appendicitis . he was found to be septic with slight elevation in his transaminases he was admitted , treated with preop abx , and IVF. He had appendectomy with no complications. appendix was not perforated and no abscess was found. post-Op he did well and tolerated diet/passes gas . he is to follow with Dr. Carr in 1 week after dc. No abx are needed after source control transaminitis was felt to be due to sepsis on a back ground of fatty live ( confirmed with UA ) dispo ; Home Condition : improved time spent 30 min F/u : Dr. Carr. referred to resident clinic Condition: Improved - Instructions Diet, Activity, Other Instructions: please follow with Dr. Carr in 4 days . - you can shower . keep dressing on till it falls off. diet as tolerated. take ibuprofen for pain,m only if you need it. take with food to avoid irritation of stomach if you have worsening abdominal pain, fever , chills, distention or no BM in few days call Dr. Carr or come to ER - please establish care with a primary care doctor. Dr. Erwin clinic info was provided - no heavy lifiting ( no more than 10 pounds ) Referrals: Sadi Erwin MD [Staff Physician] - 1 Week Chuck Crar MD [Staff Physician] - Disposition: HOME - Home Medications Comprehensive Discharge Medication List: Ambulatory Orders Ibuprofen 400 mg PO Q8H PRN #15 tablet 01/25/18 This patient is new to me today: No Emergency Visit: Yes ED Registration Date: 01/24/18 Care time: The patient presented to the Emergency Department on the above date and was hospitalized for further evaluation of their emergent condition. Critical Care patient: No - Discharge Referral Referred to [facility] Med P.C.: No
--- NOTE | 2018-01-26 11:29 | OP ---
DATE OF OPERATION: 01/24/2018 PREOPERATIVE DIAGNOSIS: Chronic appendicitis. POSTOPERATIVE DIAGNOSIS: Chronic appendicitis. PROCEDURE: Laparoscopic appendectomy. SURGEON: Chuck Carr MD ANESTHESIA: General. OPERATIVE FINDINGS: There was acute suppurative appendicitis. The rest of the findings were unremarkable. DESCRIPTION OF PROCEDURE: The patient was placed on the operating room in supine position, and after the induction of general anesthesia, a Ngo catheter was placed without incident. The abdomen was then prepped with ChloraPrep and draped in sterile fashion. A time-out was taken and then pneumoperitoneum established above the umbilicus using a Veress needle. Once an intra-abdominal pressure of 15 mmHg was achieved, a 5-mm port was placed and laparoscopy carried out and the previously noted findings were observed. A 12-mm suprapubic port and a 5-mm left lower quadrant port were placed as well. The patient's head was placed down and the table rotated to the left and the appendix identified at the convergence of the 3 taenia of the right colon. The appendix was grasped with an Endo Pramod clamp and the mesoappendix divided in serial fashion using the LigaSure. The base of the appendix was identified and cleared further using blunt dissection and then a 60-mm blue Endo JESSE was fired across the base of the appendix. The appendix was then placed in a specimen retrieval bag and brought out through the suprapubic port. Pneumoperitoneum was re-established without evidence of bleeding from the appendectomy site, and irrigation was carried out. Hemostasis was verified again and then all ports were removed under laparoscopic vision without evidence of bleeding from the port sites. The pneumoperitoneum was evacuated, and the defect in the suprapubic port area was closed with a single 0 Vicryl [id number] suture. All port sites were infiltrated with 0.5% Marcaine and the skin edges reapproximated using surgical selina. Dry sterile dressings were placed. The procedure was terminated at this point, the Ngo catheter removed, and the patient aroused from general anesthesia and transferred to the post anesthesia care unit in stable condition awake and alert. ESTIMATED BLOOD LOSS: 20 mL. REPLACEMENTS: Crystalloid. DRAINS: None. SPECIMEN: Appendix to pathology. I, Chuck Carr MD was physically present in the operating room from the time the patient was placed on the operating room table until he was transferred to the post anesthesia care unit in my company. MD ALICIA Alvarez/[id number] MTDD
--- NOTE | 2018-01-27 17:11 | PATH ---
Surgical Pathology Report Patient Name: KWASI SHIN [facility]. Rec. #: [id number] /Age/Gender: 1995 (Age: 23) / M Account: [id number] Location: [address] [place] [address]/[facility] Taken: 01/24/2018 Received: 01/26/2018 Reported: 01/27/2018 Physicians: Lety Kenney M.D. Specimen(s) Received APPENDIX Clinical History Acute appendicitis Final Diagnosis APPENDIX, LAPAROSCOPIC APPENDECTOMY: ACUTE APPENDICITIS AND PERIAPPENDICITIS. Electronically Signed Kimmie Haywood M.D. Gross Description Received in formalin, labeled "appendix," is a 8.5 cm. in length vermiform appendix with a stapled margin of resection and abundant attached fat. The serosa is faust-lei with attached exudate. Sectioning reveals a hemorrhagic lumen. The wall of the appendix averages 0.2 cm. in thickness. Theatre Instructor sections are submitted in one cassette. /01/26/2018 [facility]01/26/2018
== END 2018-01-25 19:06 | disposition home or self-care (01) | DRG 225 ==
LOC: JER 23:44 → JERBED 01-24 05:50 → UNDOADMIN 01-24 05:54 → JERBED 01-24 05:54 → J6S 01-24 08:04
PROVIDERS: ADMIT Internal Medicine; ATTEND Internal Medicine
PROC: 0DTJ4ZZ Resection of Appendix, Percutaneous Endoscopic Approach (ICD-10-PCS; principal; 2018-01-24 13:00)
DX: K35.80 Unspecified acute appendicitis (principal); K76.0 Fatty (change of) liver, not elsewhere classified; D72.829 Elevated white blood cell count, unspecified; R10.31 Right lower quadrant pain; R74.0 Nonspecific elevation of levels of transaminase and lactic acid dehydrogenase [LDH]
CPT/HCPCS: 36415; 74177-TC; 76705-TC; 80048; 80053; 83605; 83690; 85025; 85027; 85610; 85730; 86850; 86900; 86901; 87040; 88304-TC; 94760; 99284-25; J7030

== ENCOUNTER 2019-05-20 05:51 | Emergency (ER) | payer OTHER ==
[2019-05-20 06:09] VITALS: BMI 36.6
--- NOTE | 2019-05-20 06:26 | PDOC ---
Attending Attestation - Resident Resident Name: Octaviano Fernando - HPI HPI: 05/20/19 06:23 24m no pmhx presents after crush injury to R pointer finger after getting it caught in a door. - Physicial Exam PE: 05/20/19 06:24 4cm laceration to distal R 2nd digit extending from palmar aspect to base of the nail bed, minimal nail involvement. No visible foreign body. Sensation to light touch, cap refill, and extension/flexion of the DIP intact. no further injury noted. - Medical Decision Making 05/20/19 06:25 Laceration s/p crush injury to R 2nd digit neurovascularly intact X ray lac repair tetanus
--- NOTE | 2019-05-20 06:37 | PDOC ---
History of Present Illness - History of Present Illness Initial Comments: 24 year old male with no PMH presenting with right second digit pain after crushing the finger in a door 30 minutes prior to presentation while at work. He noted blood and deformity to the finger after crushing it. He did not see any bone coming from the finger and has full motion but admits that it is painful. Denies fevers, chills, nausea, vomiting, or diarrhea. He is unsure about his tetanus status. 05/20/19 06:29 <Kimberley Johnson - Last Filed: 05/20/19 06:28> <Hal Kim - Last Filed: 05/20/19 07:13> - General Chief Complaint: Laceration Stated Complaint: INJURY,FINGER Time Seen by Provider: 05/20/19 06:13 Past History - Past Medical History COPD: No - Surgical History Appendectomy: Yes - Immunization History Immunization Up to Date: Yes - Suicide/Smoking/Psychosocial Hx Smoking History: Never smoked Have you smoked in the past 12 months: No Number of Cigarettes Smoked Daily: 0 Hx Alcohol Use: No Drug/Substance Use Hx: No Substance Use Type: None Hx Substance Use Treatment: No <Kimberley Johnson - Last Filed: 05/20/19 06:28> <Hal Kim - Last Filed: 05/20/19 07:13> - Past Medical History Allergies/Adverse Reactions: Allergies Allergy/AdvReac Type Severity Reaction Status Date / Time No Known Allergies Allergy Verified 05/20/19 06:09 Home Medications: Ambulatory Orders Ibuprofen 400 mg PO Q8H PRN #15 tablet 01/25/18 Review of Systems - Review of Systems Constitutional: No: Chills, Diaphoresis, Fever, Loss of Appetite HEENTM: No: Eye Pain, Blurred Vision, Tearing Respiratory: No: Cough, Orthopnea, Shortness of Breath Cardiac (ROS): No: Chest Pain, Irregular Heart Rate ABD/GI: No: Diarrhea, Vomiting : No: Dysuria, Discharge, Frequency Musculoskeletal: No: Back Pain, Gout, Joint Swelling Integumentary: No: Bruising, Flushing, Lesions Neurological: No: Headache, Numbness, Paresthesia Psychiatric: No: Anxiety, Depression Hematologic/Lymphatic: No: Anemia, Blood Clots, Easy Bleeding <Kimberley Johnson - Last Filed: 05/20/19 06:28> *Physical Exam - Vital Signs Last Vital Signs Temp Pulse Resp BP Pulse Ox 98.3 F 85 18 122/58 L 100 05/20/19 06:07 05/20/19 06:07 05/20/19 06:07 05/20/19 06:07 05/20/19 06:07 - Physical Exam General Appearance: Yes: Nourished, Appropriately Dressed. No: Apparent Distress HEENT: positive: EOMI, HARISH, Normal ENT Inspection, Normal Voice Neck: positive: Trachea midline, Normal Thyroid, Supple. negative: Tender, Rigid Respiratory/Chest: positive: Lungs Clear, Normal Breath Sounds. negative: Chest Tender, Respiratory Distress, Accessory Muscle Use Cardiovascular: positive: Regular Rhythm, Regular Rate Gastrointestinal/Abdominal: positive: Normal Bowel Sounds, Flat, Soft. negative : Tender Musculoskeletal: negative: Normal Inspection (right 2nd digit 4 cm laceration extening across the lateral dorsal and palmar surface of the hand that appears clean, linear and with mild bleeding. Neurovascularly intact with full strength. ), Decreased Range of Motion Extremity: positive: Normal Capillary Refill, Normal Range of Motion, Tender. negative: Normal Inspection Integumentary: positive: Normal Color, Dry, Warm Neurologic: positive: Fully Oriented, Alert, Normal Mood/Affect, Normal Response , Motor Strength 5/5 <Kimberley Johnson - Last Filed: 05/20/19 06:28> - Vital Signs Last Vital Signs Temp Pulse Resp BP Pulse Ox 98.3 F 85 18 122/58 L 100 05/20/19 06:07 05/20/19 06:07 05/20/19 06:07 05/20/19 06:07 05/20/19 06:07 <Hal Kim - Last Filed: 05/20/19 07:13> ED Treatment Course - RADIOLOGY Radiology Studies Ordered: Category Date Time Status FINGER(S) RIGHT [RAD] Stat Radiology 05/20/19 06:22 Completed <Hal Kim - Last Filed: 05/20/19 07:13> Medical Decision Making - Medical Decision Making 24 year old male with right 2nd finger laceration after crushing his hand in the door. Given mechanism, cannot close wound immediately and must purse radiography to rule out fracture and need for surgical intervention prior to closure. Boostrix given for unclear tetanus status. XR pending and patient signed out to Dr. Palacios. 05/20/19 06:45 <Ofe Johnsonraymond - Last Filed: 05/20/19 06:28> *DC/Admit/Observation/Transfer <Ofe Johnsonraymond - Last Filed: 05/20/19 06:28> - Attestations Physician Attestion: 05/20/19 07:13 I have reviewed the plan as documented and agree with current plan as documented. Electronically co-signed by Hal Kim MD <Hal Kim - Last Filed: 05/20/19 07:13> Diagnosis at time of Disposition: Finger laceration Qualifiers: Encounter type: initial encounter Finger: index finger Damage to nail status: without damage Foreign body presence: without foreign body Laterality: right Qualified Code(s): S61.210A - Laceration without foreign body of right index finger without damage to nail, initial encounter - Referrals Referrals: Taylor Holley MD [Primary Care Provider] - - Patient Instructions - Post Discharge Activity
[2019-05-20] MEDS ORDERED: DIPHTH,PERTUSS(ACELL),TET 0.5 ML DISP.SYRIN IM ONE ×2 (06:53→07:11)
--- NOTE | 2019-05-20 07:43 | PDOC ---
*Physical Exam - Vital Signs Last Vital Signs Temp Pulse Resp BP Pulse Ox 98.3 F 85 18 122/58 L 100 05/20/19 06:07 05/20/19 06:07 05/20/19 06:07 05/20/19 06:07 05/20/19 06:07 ED Treatment Course - Medications Given in the ED: ED Medications Discontinued Medications Generic Name Dose Route Start Last Admin Trade Name Freq PRN Reason Stop Dose Admin Diphtheria/Tetanus/Acell Pertussis 0.5 ml 05/20/19 06:53 05/20/19 07:21 Boostrix - IM 05/20/19 06:54 0.5 ml .ONCE ONE Administration Medical Decision Making - Medical Decision Making Patient signed out by Dr. Johnson 24yo M with no PMH presenting with right second digit laceration after closing his fingers on a door. Digital block already placed Patient feeling alleviation of pain as his finger is now numb Radiographs positive for fracture,as read by radiology: "3 views of the right second digit reveal a comminuted tuft fracture with soft tissue swelling and some dense areas in the surrounding soft tissues of unclear etiology. Correlation and follow-up recommended. " 05/20/19 07:[address] Neil, hand specialist; awaiting reply 05/20/19 07:43 Wound irrigated and explored. The finger is swollen No reply received from the first hand specialist Call placed to Dr. Bautista by Dr. Palacios; message left 05/20/19 08:[address] Bautista. We will try another number for Dr. Neil 05/20/19 08:[address] Neil; he is not on-call We will try another number for Dr. Bautista 05/20/19 08:[address] Bautista, I left a voicemail requesting callback. 05/20/19 08:51 20gauge IV placed by me in the L. hand Dr. Camarena paged. We are told he is in the OR until 1pm. 05/20/19 09:43 Ancef ordered Morphine for pain Bacitracin for the wound 05/20/19 09:54 Patient and family members asked if patient may go to another hospital Had discussion with patient regarding the time it might take to go to another hospital, register, and be evaluated. We are waiting to hear back from Dr. Camarena who is likely available around 1pm. Patient is amenable to waiting for Dr. Camarena to consult on the case. 05/20/19 10:[address] Camarena. He will come see the patient in about one hour. 05/20/19 13:53 Dr. Camarena came and evaluated the patient. Laceration repaired by Dr. Camarena Per his instructions: Keflex sent to pharmacy Patient to follow up in one week Arm placed in sling 05/20/19 16:08 Patient discharged with return precautions 05/20/19 16:18 *DC/Admit/Observation/Transfer Diagnosis at time of Disposition: Open fracture of tuft of distal phalanx of finger Finger laceration Qualifiers: Encounter type: initial encounter Finger: index finger Damage to nail status: without damage Foreign body presence: without foreign body Laterality: right Qualified Code(s): S61.210A - Laceration without foreign body of right index finger without damage to nail, initial encounter - Discharge Dispostion Disposition: HOME Condition at time of disposition: Stable - Prescriptions Prescriptions: Cephalexin Monohydrate [Keflex -] 500 mg PO QID #28 capsule - Referrals Referrals: Taylor Holley MD [Primary Care Provider] - Gurpreet Camarena MD [Staff Physician] - - Patient Instructions Printed Discharge Instructions: DI for Finger Fracture, DI for Open Laceration Additional Instructions: You came to the emergency department for a laceration to your right second finger. Our workup showed you have a comminuted fracture. A plastic surgeon came and evaluated you. Follow up with this specialist in one week. Call today and make an appointment. Your workup is not complete until you do so. Antibiotics sent to your pharmacy. Take as instructed. Keep your arm in a sling to prevent further injury. While you were here, we gave you a shot called Boostrix, also called TDAP, to cover you for tetanus. Keep the area clean. RETURN to the ED if you experience: redness or hardness around the wound, pain or tenderness, a red streak, yellow or green discharge oozing from the wound, fever or chills. - Post Discharge Activity Forms/Work/School Notes: Back to Work
[2019-05-20] MEDS ORDERED: CEFAZOLIN 2 GM in DEXTROSE 5%-WATER - 50 ML IVPB ONE (09:49)
[2019-05-20] MEDS ORDERED: morphine CARPU-JECT 2 MG/1 ML DISP.SYRIN IVPUSH ONE (09:53)
[2019-05-20] MEDS ORDERED: BACITRACIN 15 GM TUBE TOPICAL OINTMENT TP ONE (09:53)
[2019-05-20] MEDS ORDERED: MORPHINE SULFATE 2 MG/ML VIAL ONE (10:01)
[2019-05-20] MEDS ORDERED: BACITRACIN 0.9 GM PACKET ONE (10:01)
[2019-05-20] MEDS ORDERED: CEFAZOLIN 1 GM/D5W 2 GM/100 ML BAG ONE (10:02)
[2019-05-20 10:14] VITALS: TEMP 97.9
[2019-05-20] MEDS ORDERED: LIDOCAINE HCL 2% (20ML MULTI-DOSE VIAL) NR ONE (15:19)
[2019-05-20 16:18] VITALS: BP 115/71; PULSE 75
--- NOTE | 2019-05-21 19:52 | OP ---
DATE OF OPERATION: 05/20/2019 PROCEDURES: 1. Right index finger open reduction and splint stabilization of distal phalanx fracture, comminuted. 2. Complex wound laceration to the fingertip of the right index finger. 3. Nail bed laceration washout repair of right index finger. ATTENDING SURGEON: Gurpreet Camarena MD HISTORY: Patient is seen at the request of referring physician, Dr. Edenilson Collins. This is a 24-year-old male who suffered a crush injury on the job to the right index finger. Brought into the Hospital Emergency Room for evaluation and treatment. PAST MEDICAL HISTORY: Noncontributory. PAST SURGICAL HISTORY: Noncontributory. REVIEW OF SYSTEMS: Negative for any bleeding, coagulopathy, . PHYSICAL EXAMINATION: HEENT: Head atraumatic. Neck: Atraumatic. Abdomen: Soft, nontender. Extremities: Warm, well perfused. There is a crush injury with deformity with subungual hematoma and multiple lacerations in a complex fashion to the right index finger. X-ray shows a comminuted fracture of the distal phalanx. Risks, benefits, and alternatives to washout, repair, and fracture management are reviewed, understood, and agreed to proceed. DESCRIPTION OF PROCEDURE: Finger is given 3 mL 2% lidocaine plain digital block after which the wound was prepped and draped in standard surgical fashion. A tourniquet was applied, which was removed at the end of the procedure under tourniquet control. The nail plate is removed. The finger tissues are copiously irrigated and washed out of any debris after which the bones are carefully aligned, and the multiple irregular skin edges are approximated with a series of interrupted 4-0 nylon suture. The nail bed is then carefully approximated after nail plate is avulsed. The nail bed is repaired with a series of interrupted 5-0 Vicryl suture. The nail plate is then reaffixed into the eponychial fold with a 4-0 nylon stenting suture. Tourniquet is removed. Fingertip is pack and viable. The dressing was applied with bacitracin, Xeroform, Shereen, and AlumaFoam splint. Instructions are given. Patient started on Keflex. Follow up with Dr. Camarena in 1 week. GURPREET CAMARENA M.D. [id number]
== END 2019-05-20 16:31 | disposition home or self-care (01) ==
LOC: JER 05:51
PROC: 3E0234Z Introduction of Serum, Toxoid and Vaccine into Muscle, Percutaneous Approach (ICD-10-PCS; principal; 2019-05-20)
PROC: 0HQFXZZ Repair Right Hand Skin, External Approach (ICD-10-PCS; 2019-05-20)
DX: S61.210A Laceration without foreign body of right index finger without damage to nail, initial encounter (principal); W23.1XXA Caught, crushed, jammed, or pinched between stationary objects, initial encounter; Y93.89 Activity, other specified; Y92.89 Other specified places as the place of occurrence of the external cause
CPT/HCPCS: 73140-TC-RT-FY; 90715; 99282-25

== ENCOUNTER 2019-05-25 13:45 | Emergency (ER) | payer OTHER ==
[2019-05-25 13:55] VITALS: BP 124/69; PULSE 81; TEMP 98.1; BMI 36.6
--- NOTE | 2019-05-25 16:07 | PDOC ---
*Physical Exam - Vital Signs Last Vital Signs Temp Pulse Resp BP Pulse Ox 98.1 F 81 16 124/69 99 05/25/19 13:53 05/25/19 13:53 05/25/19 13:53 05/25/19 13:53 05/25/19 13:53 Medical Decision Making - Medical Decision Making 05/25/19 16:07 24 yo M s/p suture repair concerned about the discoloration of his thumb Pt seen by Midlevel Provider under my direct supervision Dr Camarena contacted He thinks this is likely related to mascerated skin He will see pt tomorrow continue abx I agree with plan as outlined by Midlevel Provider 05/25/19 16:26 *DC/Admit/Observation/Transfer Diagnosis at time of Disposition: Finger laceration - Discharge Dispostion Disposition: HOME Condition at time of disposition: Stable - Referrals Referrals: Gurpreet Camarena MD [Staff Physician] - 05/26/19 ON STAFF,NOT [Primary Care Provider] - - Patient Instructions Printed Discharge Instructions: DI for Laceration Repair Additional Instructions: Thank you for choosing [facility]. It was a pleasure taking care of you. Please milagros Return to the Emergency Department if your symptoms worsen or persist, you have fever, shortness of breath, chest pain, severe abdominal pain, vomiting, dizziness, weakness of extremities (arms and/or legs), changes in vision or walking or other concerning symptoms. - Post Discharge Activity
--- NOTE | 2019-05-25 16:25 | PDOC ---
History of Present Illness - General Chief Complaint: Revisit,Wound Recheck Stated Complaint: REVISIT Time Seen by Provider: 05/25/19 14:28 History Source: Patient Exam Limitations: No Limitations Past History - Past Medical History Allergies/Adverse Reactions: Allergies Allergy/AdvReac Type Severity Reaction Status Date / Time No Known Allergies Allergy Verified 05/25/19 13:55 Home Medications: Ambulatory Orders Ibuprofen 400 mg PO Q8H PRN #15 tablet 01/25/18 Cephalexin Monohydrate [Keflex -] 500 mg PO QID #28 capsule 05/20/19 COPD: No - Surgical History Appendectomy: Yes - Immunization History Immunization Up to Date: Yes - Suicide/Smoking/Psychosocial Hx Smoking History: Never smoked Have you smoked in the past 12 months: No Number of Cigarettes Smoked Daily: 0 Hx Alcohol Use: No Drug/Substance Use Hx: No Substance Use Type: None Hx Substance Use Treatment: No *Physical Exam - Vital Signs Last Vital Signs Temp Pulse Resp BP Pulse Ox 98.1 F 81 16 124/69 99 05/25/19 13:53 05/25/19 13:53 05/25/19 13:53 05/25/19 13:53 05/25/19 13:53 - Physical Exam General Appearance: No: Apparent Distress Extremity: positive: Other (stitches in place R index finger, no pustular drainage, medial aspect of finger appears a bit white/macerated, no swelling of finger, no streaking) Integumentary: negative: Erythema, Ecchymosis, Bruising Neurologic: positive: Alert, Normal Mood/Affect Medical Decision Making - Medical Decision Making 24 y/o M with no sig pmh presents with concern for noting whitish appearance along medial aspect of R index finger today. Patient was seen last week for R index finger laceration, repaired by Dr. Camarena, and placed on Keflex, which patient is taking. Patient also had tuft fracture of finger and has splint. Denies fever, chills, pustular drainage. Patient states he does not get the finger wet and usually keeps it covered with plastic bag when showering No concern for cellulitis/abscess Patient has f/u with Dr. Camarena tomorrow D/W Dr. Camarena (sent images of finger) - states finger appears a bit macerated , but no sign of infection; advised patient can f/u with him tomorrow Site of injury covered with xeroform dressing, stable for dc 05/25/19 16:20 *DC/Admit/Observation/Transfer Diagnosis at time of Disposition: Finger laceration Qualifiers: Encounter type: subsequent encounter Finger: index finger Damage to nail status : without damage Foreign body presence: without foreign body Laterality: right Qualified Code(s): S61.210D - Laceration without foreign body of right index finger without damage to nail, subsequent encounter - Discharge Dispostion Disposition: HOME Condition at time of disposition: Stable Decision to Admit order: No - Referrals Referrals: ON STAFF,NOT [Primary Care Provider] - Gurpreet Camarena MD [Staff Physician] - 05/26/19 - Patient Instructions Printed Discharge Instructions: DI for Laceration Repair Additional Instructions: Thank you for choosing [facility]. It was a pleasure taking care of you. Please continue the antibiotics previously prescribed Follow-up with Dr. Camarena tomorrow Return to the Emergency Department if your symptoms worsen or persist, you have fever, increased swelling, redness, streaking, pustular discharge or other concerning symptoms. - Post Discharge Activity
== END 2019-05-25 16:28 | disposition home or self-care (01) ==
LOC: SUPCPDRO 13:45 → JERFT 13:45 → JER 13:45
DX: Z48.817 Encounter for surgical aftercare following surgery on the skin and subcutaneous tissue (principal); S61.210D Laceration without foreign body of right index finger without damage to nail, subsequent encounter; W23.1XXD Caught, crushed, jammed, or pinched between stationary objects, subsequent encounter
CPT/HCPCS: 99281-25

== ENCOUNTER 2019-10-24 05:13 | Emergency (ER) | payer OTHER ==
--- NOTE | 2019-10-24 05:43 | PDOC ---
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 He has paraspinal and mid back tenderness over the spine. Pt has had little to eat in the last 2 days as he fells pain, and he has been constipated as he cannot "push" to have BM without huting his midback muscles. Ot has no fever and he has only pain. OTC meds are not helping. He has never experienced this level of pain. - Physicial Exam PE: 10/24/19 07:00 PT HAS T7-T9 PAIN THAT RADIATES AROUND. ALSO T10-L1 PAIN - Medical Decision Making 10/24/19 06:59 Pt has exquisite pain. He has been unable to eat for A COUPLE DAYS AND UNABLE TO STOOL; WHEN HE STIS AND PUSHES., HE HAS PAIN IN THE MIDBACK WE WILL GET CT SCAN TO R/O SLIPPED DISK. CBC AND COMP SENT 10/25/19 00:30 Pt signed out to the day ER team, who will follow CT scans and reevaluate patient and dispo him.
[2019-10-24 05:46] VITALS: TEMP 98.1; BMI 38.9
--- NOTE | 2019-10-24 05:50 | PDOC ---
History of Present Illness - General Chief Complaint: Back Pain Stated Complaint: BACK PAIN Time Seen by Provider: 10/24/19 05:43 History Source: Patient Exam Limitations: No Limitations - History of Present Illness Initial Comments: 10/24/19 06:38 24 yo male no sig pmh presents to the ED for bilateral mid to lower back pain. 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 The pain began 1 month ago, todays pain is of the same quality however, intensity is severe. Pain described as sharp and stabbing with intermittent spasms, no relief with Tylenol, denies changes in sensation or strength into any ext, denies saddle anesthesia, denies incontinence or retention, denies abdominal pain, denies F/C/ N/V, CP, SOB or changes in bowel or bladder habits. Past History - Past Medical History Allergies/Adverse Reactions: Allergies Allergy/AdvReac Type Severity Reaction Status Date / Time No Known Allergies Allergy Verified 10/24/19 05:42 Home Medications: Ambulatory Orders Ibuprofen 400 mg PO Q8H PRN #15 tablet 01/25/18 Cyclobenzaprine HCl [Flexeril -] 10 mg PO TID #21 tablet 10/24/19 Ibuprofen [Motrin -] 400 mg PO QID PRN #60 tablet 10/24/19 Lidocaine 5% Patch [Lidoderm -] 1 patch TP DAILY #7 patch 10/24/19 Lidocaine 5% Patch [Lidoderm Patch -] 1 patch TP DAILY #30 patch 10/24/19 Methocarbamol [Robaxin -] 500 mg PO TID #30 tablet 10/24/19 COPD: No - Surgical History Appendectomy: Yes - Immunization History Immunization Up to Date: Yes - Psycho Social/Smoking Cessation Hx Smoking History: Never smoked Have you smoked in the past 12 months: No Number of Cigarettes Smoked Daily: 0 Information on smoking cessation initiated: No Hx Alcohol Use: No Drug/Substance Use Hx: No Substance Use Type: None Hx Substance Use Treatment: No Review of Systems - Review of Systems Constitutional: No: Chills, Fever Respiratory: No: Shortness of Breath Cardiac (ROS): No: Chest Pain ABD/GI: No: Constipated, Diarrhea, Nausea, Vomiting : No: Burning, Dysuria, Frequency, Flank Pain Musculoskeletal: Yes: Back Pain. No: Muscle Weakness Neurological: No: Headache, Numbness, Paresthesia, Weakness, Unsteady Gait, Ataxia *Physical Exam - Vital Signs Last Vital Signs Temp Pulse Resp BP Pulse Ox 98.1 F 75 20 116/88 96 10/24/19 05:43 10/24/19 05:43 10/24/19 05:43 10/24/19 05:43 10/24/19 05:43 - Physical Exam General Appearance: Yes: Nourished, Appropriately Dressed HEENT: positive: EOMI Neck: positive: Supple. negative: Carotid bruit Respiratory/Chest: positive: Lungs Clear, Normal Breath Sounds. negative: Respiratory Distress, Crackles, Rales, Rhonchi, Stridor, Wheezing, Hyperresonant Cardiovascular: positive: Regular Rhythm, Regular Rate, S1, S2. negative: Edema , JVD, Murmur Vascular Pulses: Dorsalis-Pedis (R): 4+, Doralis-Pedis (L): 4+ Gastrointestinal/Abdominal: positive: Flat, Soft. negative: Pulsatile Mass, Distended, Guarding, Rebound, Tenderness Musculoskeletal: negative: CVA Tenderness Extremity: positive: Normal Capillary Refill, Normal Inspection, Normal Range of Motion Integumentary: positive: Normal Color, Dry, Warm Neurologic: positive: Fully Oriented, Alert, Normal Mood/Affect, Normal Response , Motor Strength 5/5. negative: Facial Droop, Numbness, Sensory Deficit, Confused, Disoriented ED Treatment Course - LABORATORY CBC & Chemistry Diagram: 10/24/19 06:57 10/24/19 06:57 Medical Decision Making - Medical Decision Making 10/24/19 06:41 24 yo male no sig pmh presents to the ED for bilateral mid to lower back pain. 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 The pain began 1 month ago, todays pain is of the same quality however, intensity is severe. Pain described as sharp and stabbing with intermittent spasms, no relief with Tylenol, denies changes in sensation or strength into any ext, denies saddle anesthesia, denies incontinence or retention, denies abdominal pain, denies F/C/ N/V, CP, SOB or changes in bowel or bladder habits. vitals WNL Pt appears to be in discomfort due to back pain. Light touch to bilateral mid- lower para spinal muscles recreates pain. Ordered toradol, robaxin and lidoderm patch will reassess Pt continues to be in severe pain and complains of constipation for 2 days CBC and CMP sent, 4 mg IV morphine given and will CT spine r/o fracture/disc herniation s/o to day team for CT and dispo Discharge - Discharge Information Problems reviewed: Yes Clinical Impression/Diagnosis: Back pain Qualifiers: Back pain location: low back pain Chronicity: acute Back pain laterality: midline Sciatica presence: with sciatica Sciatica laterality: sciatica of right side Qualified Code(s): M54.41 - Lumbago with sciatica, right side Condition: Stable Disposition: HOME - Additional Discharge Information Prescriptions: Cyclobenzaprine HCl [Flexeril -] 10 mg PO TID #21 tablet Ibuprofen [Motrin -] 400 mg PO QID PRN #60 tablet PRN Reason: Back Pain Lidocaine 5% Patch [Lidoderm Patch -] 1 patch TP DAILY #30 patch Lidocaine 5% Patch [Lidoderm -] 1 patch TP DAILY #7 patch Methocarbamol [Robaxin -] 500 mg PO TID #30 tablet - Follow up/Referral Referrals: Mitchell Martinez MD [Primary Care Provider] - - Patient Discharge Instructions Patient Printed Discharge Instructions: DI for Thoracic Back Pain Additional Instructions: You came to the emergency department for back pain. CT imaging was negative for acute pathology. Prescription sent to your pharmacy: Flexeril 5mg three times a day; Lidoderm patch: apply to the affected area, Patch may remain in place for up to 12 hours in any 24-hour period. You can also take [id number] motrin or tylenol for pain. Follow the instructions on the medication bottle. Follow-up with you orthopedist or primary care physician within 72 hours to discuss this ED visit and to further evaluate your back pain. Your care is not complete until you do so. Call and make an appointment. Immediate medical attention is required if you have back pain and : numbness in the genital or rectal area, loss of bowel or bladder control, difficulty with urination; fever, unexplained weight loss, or other signs of illness or infection. If you think you are having an emergency, call for emergency medical - Post Discharge Activity Work/Back to School Note: Back to Work
[2019-10-24] MEDS ORDERED: KETOROLAC TROMETHAMINE 30 MG/1 ML VIAL IM ONE (05:51)
[2019-10-24] MEDS ORDERED: LIDOCAINE 5% TOPICAL PATCH TP ONE (05:51)
[2019-10-24] MEDS ORDERED: LIDOCAINE 5% TOPICAL PATCH ONE (05:54)
[2019-10-24] MEDS ORDERED: KETOROLAC TROMETHAMINE 30 MG/1 ML VIAL ONE (05:54)
[2019-10-24] MEDS ORDERED: METHOCARBAMOL 500 MG TABLET PO ONE (06:00)
[2019-10-24] MEDS ORDERED: METHOCARBAMOL 500 MG TABLET ONE (06:18)
[2019-10-24] MEDS ORDERED: morphine SULFATE 4 MG/ML VIAL ONE (06:51)
[2019-10-24] MEDS ORDERED: morphine CARPU-JECT 4 MG/1 ML DISP.SYRIN IVPUSH ONE (06:56)
--- NOTE | 2019-10-24 07:24 | PDOC ---
*Physical Exam - Vital Signs Last Vital Signs Temp Pulse Resp BP Pulse Ox 98.1 F 75 20 116/88 96 10/24/19 05:43 10/24/19 05:43 10/24/19 05:43 10/24/19 05:43 10/24/19 05:43 ED Treatment Course - LABORATORY CBC & Chemistry Diagram: 10/24/19 06:57 10/24/19 06:57 - Medications Given in the ED: ED Medications Discontinued Medications Generic Name Dose Route Start Last Admin Trade Name Mayank PRN Reason Stop Dose Admin Ketorolac Tromethamine 30 mg 10/24/19 05:51 10/24/19 05:59 Toradol Injection - IM 10/24/19 05:52 30 mg ONCE ONE Administration Lidocaine 1 patch 10/24/19 05:51 10/24/19 05:59 Lidoderm Patch - TP 10/24/19 05:52 1 patch ONCE ONE Administration Methocarbamol 1,000 mg 10/24/19 06:00 10/24/19 06:20 Robaxin - PO 10/24/19 06:01 1,000 mg ONCE ONE Administration Morphine Sulfate 4 mg 10/24/19 06:56 10/24/19 06:58 Morphine Injection - IVPUSH 10/24/19 06:57 4 mg ONCE ONE Administration Medical Decision Making - Medical Decision Making Patient signed out by Dr. Thorpe 24 yo male no significant PMH presents to the ED for bilateral mid to lower back pain. 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 Rule out slipped disc CT scan of the cervical spine without intravenous contrast Coronal and sagittal reconstruction images were obtained. No gross fracture, subluxation or prevertebral soft tissue swelling is seen. Visualized portion of the airway appears unremarkable. No gross enlarged lymph nodes are identified. Lung windows at the thoracic inlet appear unremarkable. There is significant enlargement of the tonsils markedly narrowing the airway with secretions present. Parapharyngeal space is clear. IMPRESSION: The alignment is satisfactory. No gross fracture or subluxation is seen. Significantly enlarged tonsils with secretions and marked narrowing of the airway. ENT consult is suggested CT scan of the thoracic spine without intravenous contrast Contiguous axial scans were obtained followed with coronal and sagittal reconstruction images. The height and alignment of the vertebral bodies appear unremarkable. No fracture or subluxation is identified. Intervertebral disc spaces are intact At T7-T8 level there is mild degenerative disc disease. At T8-T9 level, there is mild left paracentral disc osteophyte complex. No gross paraspinal soft tissue abnormality is seen. Visualized portion of the lung is well- aerated. IMPRESSION: No compression fracture or subluxation is identified. Intervertebral disc spaces are intact Mild degenerative disc disease at T7-T8 and T8-T9 level, as described above. Correlate clinically to determine further evaluation CT scan of the lumbar spine without intravenous contrast. Coronal and sagittal reconstruction images were obtained. The height and alignment of the vertebral bodies appear unremarkable without evidence of a fracture or subluxation. At L4-L5 level there is mild mainly central disc bulge without gross nerve root impingement. No paraspinal soft tissue abnormality is seen Impression: No compression fracture or subluxation is identified. L4-L5 mild mainly central disc bulge without gross nerve root impingement. Correlate included to determine further evaluation. Correlation with an MRI of the spine would be more sensitive to evaluate for disc bulge/herniation , if clinically indicated. Reported By: Sharad Carreon MD 10/24/19 0941 " Patient feeling better Able to ambulate with steady gait Muscle relaxant prescription sent to pharmacy Instructed to follow up with his orthopedist Patient given copy of radiology report Work note Return precautions Stable for discharge Discharge - Discharge Information Problems reviewed: Yes Clinical Impression/Diagnosis: Back pain Qualifiers: Back pain location: low back pain Chronicity: acute Back pain laterality: midline Sciatica presence: with sciatica Sciatica laterality: sciatica of right side Qualified Code(s): M54.41 - Lumbago with sciatica, right side Condition: Stable Disposition: HOME - Additional Discharge Information Prescriptions: Cyclobenzaprine HCl [Flexeril -] 10 mg PO TID #21 tablet Ibuprofen [Motrin -] 400 mg PO QID PRN #60 tablet PRN Reason: Back Pain Lidocaine 5% Patch [Lidoderm Patch -] 1 patch TP DAILY #30 patch Lidocaine 5% Patch [Lidoderm -] 1 patch TP DAILY #7 patch Methocarbamol [Robaxin -] 500 mg PO TID #30 tablet - Follow up/Referral Referrals: Mitchell Martinez MD [Primary Care Provider] - - Patient Discharge Instructions Patient Printed Discharge Instructions: DI for Thoracic Back Pain Additional Instructions: You came to the emergency department for back pain. CT imaging was negative for acute pathology. Prescription sent to your pharmacy: Flexeril 5mg three times a day; Lidoderm patch: apply to the affected area, Patch may remain in place for up to 12 hours in any 24-hour period. You can also take [id number] motrin or tylenol for pain. Follow the instructions on the medication bottle. Follow-up with you orthopedist or primary care physician within 72 hours to discuss this ED visit and to further evaluate your back pain. Your care is not complete until you do so. Call and make an appointment. Immediate medical attention is required if you have back pain and : numbness in the genital or rectal area, loss of bowel or bladder control, difficulty with urination; fever, unexplained weight loss, or other signs of illness or infection. If you think you are having an emergency, call for emergency medical - Post Discharge Activity Work/Back to School Note: Back to Work
[2019-10-24 07:36] LABS: BASO % 0.6 % (0-2.0); EOS % 4.6 % (0-4.5); HEMOGLOBIN 15.6 GM/dL (11.7-16.9); LYMPH % 29.8 % (8-40); MCHC 33.8 g/dl (32.0-35.9); MEAN CELL VOLUME 88.8 fl (80-96); MEAN PLT VOLUME 8.9 fl (7.5-11.1); MONO % 8.3 % (3.8-10.2); NEUT % 56.7 % (42.8-82.8); PLATELET COUNT 296 K/MM3 (134-434); RBC 5.19 M/mm3 (4.00-5.60); RDW 12.8 % (11.9-15.9); WHITE BLOOD COUNT 9.4 K/mm3 (4.0-10.0)
[2019-10-24 08:26] LABS: ALBUMIN 3.8 g/dl (3.4-5.0); BILIRUBIN,TOTAL 0.6 mg/dL (0.2-1); BLOOD UREA NITROGEN 17.4 mg/dL (7-18); CALCIUM 9.3 mg/dL (8.5-10.1); CREATININE 0.8 mg/dL (0.55-1.3); TOT PROT 7.8 g/dl (6.4-8.2)
[2019-10-24 11:35] VITALS: BP 114/66; PULSE 67
[2019-10-24] MEDS ORDERED: LIDOCAINE PATCH REMOVAL MC SCH (22:00)
== END 2019-10-24 11:35 | disposition home or self-care (01) ==
LOC: JER 05:13
PROC: 3E033NZ Introduction of Analgesics, Hypnotics, Sedatives into Peripheral Vein, Percutaneous Approach (ICD-10-PCS; principal; 2019-10-24)
DX: M54.41 Lumbago with sciatica, right side (principal)
CPT/HCPCS: 36415; 72125-TC; 72128-TC; 72131-TC; 80053; 85025; 96374; 99283-25

== ENCOUNTER 2020-08-07 16:28 | Emergency (ER) | payer OTHER ==
[2020-08-07 16:39] VITALS: BP 136/63; PULSE 96; TEMP 98.1; BMI 25.0
[2020-08-07] MEDS ORDERED: ALBUTEROL SO4 2.5/IPRATROPIUM 0.5 INH SOL 3 ML VIAL.NEB. NEB ONE (16:45)
[2020-08-07] MEDS: ALBUTEROL SO4 2.5/IPRATROPIUM 0.5 INH SOL 3 ML VIAL.NEB. NEB SCH ×3 (16:45→17:08)
== END 2020-08-07 18:08 | disposition home or self-care (01) ==
LOC: JERFT 16:28
PROC: 3E0F7GC Introduction of Other Therapeutic Substance into Respiratory Tract, Via Natural or Artificial Opening (ICD-10-PCS; principal; 2020-08-07)
DX: J40 Bronchitis, not specified as acute or chronic (principal)
CPT/HCPCS: 71046-TC-FY; 99285-25; C9803; U0003